=== PATIENT | female | born 1975 | race Caucasian/White ===

== ENCOUNTER → 2019-11-24 | Day surgery (SDC) | payer OTHER ==
[~2019-11-24] MED LIST: AMITRIPTYLINE H25 MG PO; CEFUROXIME250 MG PO; DEXAMETHASONE SOD PHOS INJ 4 MG/ML VIAL ONE; FENTANYL CITRATE/PF 100MCG/2 ML INJ ONE; HYDROMORPHONE 1MG/1ML INJ ONE; LEXAPRO10 MG PO; LIDOCAINE 1% W/EPINEPHRINE 20 ML VIAL ONE; LIDOCAINE HCL 2% LOCAL INJ 5 ML SDV VIAL INJ ONE; LINZESS145 MCG PO; MIDAZOLAM HCL 2 MG/2 ML VIAL ONE; OMEPRAZOLE40 MG PO; ONDANSETRON HCL INJ 2MG/ML 2ML 2 MG/ML VIAL ONE; ONE DAILY FOR1 EACH PO; PROPOFOL IV EMULSION 10 MG/ML 20 ML VIAL ONE; SEVOFLURANE INHAL SOLN 250 ML PEN BTL ONE; VITAMIN B122500 MCG PO
--- NOTE | 2019-11-24 03:16 | Pre Op History & Physical ---
ANTICIPATED DATE OF SURGERY: 11/24/2019. CHIEF COMPLAINT: Right thyromegaly. 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 The patient's thyroid function tests have been normal recently. Ultrasound of thyroid was done in September of this year showed the patient has enlarged thyroid, worse on the right side with subcentimeter nodule on both sides with calcified nodule on the left. The patient over the past months has progressively increased dysphagia with no odynophagia. The patient denies any choking. She has no voice problem. She mentioned that she has more trouble with solid than liquid. The initial game plan for the patient's thyroid was to repeat ultrasound in the new year. However, the patient because of progressively increased symptoms, CT scan of the neck was performed showed the patient has enlarged slight right thyroid gland with diffuse heterogeneity with minimal compression of the trachea on the right side. REVIEW OF SYSTEMS: Showed no recent cardiovascular, respiratory, or GI problem. PAST MEDICAL HISTORY: The patient has no significant medical problem. PAST SURGICAL HISTORY: The patient has previous tonsillectomy, adenoidectomy, bilateral myringotomy and tubes, laparoscopy, hysterectomy, wisdom teeth extraction, left elbow surgery, bariatric sleeve surgery, and cholecystectomy. ALLERGIES: SHE IS ALLERGIC TO STADOL AND PLASTIC TAPE. MEDICATIONS: She is on: 1. Vitamins. 2. Lexapro. 3. Amitriptyline. 4. Linzess. 5. Omeprazole. SOCIAL HISTORY: Nonsmoker and social drinker. FAMILY HISTORY: Noncontributory. PHYSICAL EXAMINATION: VITAL SIGNS: The patient's vital signs were within normal limits. HEENT: Ear exam showed normal tympanic membrane bilaterally. Nasal exam showed hypertrophy of inferior turbinates. Oropharynx and oral cavity showed 2+ tonsils bilaterally with Mallampati level 2. Nasal endoscopy showed mobile vocal folds bilaterally with no lesion in the hypopharynx. NECK: Showed fullness in the neck, worse on the right side. No other lymph node was palpable. CHEST: Showed good air entry bilaterally. CARDIOVASCULAR: Showed S1, S2. No murmur noted. ASSESSMENT AND PLAN: Mrs. Cox has right thyroid enlargement with slight compression of the trachea. The patient has quite severe symptoms. I suggested treatment is right thyroidectomy, possible total thyroidectomy, and other necessary procedure. Complication of procedure includes but not limited to bleeding, infection, hypothyroidism, hyperthyroidism, hypocalcemia, hypercalcemia, voice change, recurrent laryngeal nerve injury, trouble swallowing, dysphagia, wound breakdown, poor cosmetic result, perforation of the esophagus, pneumomediastinum, mediastinitis, persistent recurrence of the problem. The alternatives will be continue observation. Continue antibiotic therapy, topical nasal steroid therapy, systemic steroid therapy, thyroid suppression therapy, and I have discussed with the patient regarding the possibility of her pressure sensation could be secondary to the bariatric surgery with gastroesophageal reflux symptoms and seen a GI physician. The patient has elected to undergo the surgical procedure. MD BLANCA Sal/FOUZIA /[id number] cc: June Pandya [employer]
[2019-11-24 12:45] VITALS: BP 126/83
--- NOTE | 2019-11-24 19:21 | Operative Report ---
DATE OF PROCEDURE: 11/24/2019 SURGEON: Deep Cardona MD CHIEF COMPLAINT: Right thyromegaly. POSTOPERATIVE DIAGNOSIS: Right thyromegaly with multinodular goiter. OPERATIVE PROCEDURE: Right thyroidectomy with appropriate closure. ANESTHESIA: Anesthesiology group. HISTORY OF PRESENT ILLNESS: This 44-year-old female has history of multinodular goiter. The patient has subcentric nodules on both sides. The patient was noted to have a slightly larger thyroid on the right side compared to the left. The initial game plan was to follow the nodules with repeated ultrasound because the nodules were too small for biopsy. However, over the past few months, the patient has progressively more compression coming from the thyroid, worse on the right side. A CT scan of the neck that was done showed the patient has thyromegaly with the right thyroid, potentially pressing on the trachea. This has been quite symptomatic to the patient. The patient has no radiation to the head and neck area. She has no obvious dysphagia, odynophagia, weight changes. The patient has no hoarseness. It was decided that right thyroidectomy, possible total thyroidectomy, and other necessary procedure will be beneficial for her. The patient was taken to the operating room, put under general anesthesia, endotracheally intubated. An incision was marked out about two fingerbreadths from the sternal notch. Size of the incision was about 3.5 cm. The area was injected with 1% Xylocaine with 1:100,000 epinephrine for hemostasis. Dissection was carried down the subplatysmal plane. The superior and inferior flap were elevated. The strap muscle was identified and this was . The superior pole of the thyroid was dissected from the surrounding soft tissue. It was noted that the thyroid gland was wrapped 180 degrees around the trachea. With some difficulty, this was dissected off using the Harmonic scalpel. The soft thyroid gland was rotated medially and inferiorly. The thyroid gland was delivered. The thyroid isthmus was transected using the Bovie. The inferior pole of the thyroid was dissected from the surrounding soft tissue. The recurrent laryngeal nerve was identified and this was not disturbed. The inferior parathyroid gland was identified and not disturbed. The thyroid gland was dissected from the Wen ligament with some difficulty because of the way to the thyroid gland was positioned around the trachea, this was dissected off. Because of the weather today, the pathologist cannot make it in for frozen section at the last minute, so frozen section was not available. Closure of the area was undertaken. The tracheoesophageal groove was examined. Any bleeding area was controlled using the bipolar cautery. The strap muscle was advanced and closed on itself using one suture of mattress 3-0 Vicryl suture. The platysmal flap was advanced in the midline and closed on itself using 3-0 Vicryl suture in the interrupted fashion. The skin incision was closed using 4-0 Monocryl suture in the interrupted fashion. A pressure dressing was applied. The patient tolerated the above procedure well. Before the closure of the incision, the left thyroid gland was palpated. No obvious abnormality was noted. No enlarged nodules or potential obvious calcification of the thyroid gland was noted. The platysmal flap was advanced in midline and closed using one suture of mattress 3-0 Vicryl suture. The closure was undertaken. The strap muscle was advanced and closed with one suture of mattress 3-0 Vicryl suture. The platysmal flap was advanced in midline and closed on itself using 3-0 Vicryl suture in the interrupted fashion. The skin incision was closed using 4-0 Monocryl suture in interrupted fashion. Pressure dressing was applied. The patient tolerated the above procedure well with estimated blood loss about 10-15 mL. She was given 12 mg of Decadron intraoperatively. The patient was able to be transferred to recovery room in stable condition. MD BLANCA Sal/FOUZIA /[id number]
== END | disposition home or self-care (01) ==
LOC: OR 06:36
PROVIDERS: ATTEND Otolaryngology Otolaryngology/Facial Plastic Surgery
DX: E06.3 Autoimmune thyroiditis (principal); E01.0 Iodine-deficiency related diffuse (endemic) goiter; Z88.6 Allergy status to analgesic agent; Z91.048 Other nonmedicinal substance allergy status
CPT/HCPCS: 60210; 88307; J1100; J1170; J2001; J2250; J2405; J2704; J3010

== ENCOUNTER → 2019-12-29 | Day surgery (SDC) | payer OTHER ==
--- NOTE | 2019-12-28 17:06 | Pre Op History & Physical ---
DATE OF SURGERY: December 29, 2019. CHIEF COMPLAINT: Nasal obstruction, chronic sinusitis. HISTORY OF PRESENT ILLNESS: This 44-year-old female has history of nasal obstruction and facial pain for a few months. The patient has no epistaxis. She has normal sense of smell. She does have postnasal drip. Her condition has been followed for the past year and has been treated with more than 12 weeks of antibiotics, topical nasal steroid and decongestant with no improvement. On examination, on CT scan of paranasal sinuses done before surgery showed the patient has ethmoid involvement and deviated nasal septum. REVIEW OF SYSTEMS: System review showed no recent cardiovascular, respiratory, or GI problem. PAST MEDICAL HISTORY: The patient has no significant medical problem. PAST SURGICAL HISTORY: The patient has previous hysterectomy x3, tonsillectomy, adenoidectomy, bilateral myringotomy and tubes, laparoscopic heel sander surgery, wisdom teeth extraction, left elbow surgery, bariatric gastric sleeve surgery, and cholecystectomy. She recently had a right thyroidectomy for thyroid compression on the trachea. SOCIAL HISTORY: She is nonsmoker and a social drinker. ALLERGIES: SHE IS ALLERGIC TO PLASTIC TAPE AND STADOL. MEDICATIONS: She is on vitamins, Lexapro, amitriptyline, Linzess, omeprazole. FAMILY HISTORY: Noncontributory. PHYSICAL EXAMINATION: VITAL SIGNS: The patient's vital signs were within normal limits. HEENT: Ear exam showed normal tympanic membrane bilaterally. Nasal exam showed deviated nasal septum on left side about 30%. Oropharynx and oral cavity showed no tonsils with Mallampati level 2. NECK: Showed no lymph node or thyroid palpable. CHEST: Showed good air entry bilaterally. CARDIOVASCULAR: Showed S1, S2. No murmur noted. ASSESSMENT AND PLAN: Ms. Cox has chronic sinusitis, nasal obstruction which has been resistant to conservative therapy. The suggested treatment is endoscopic sinus surgery, septoplasty, resection of inferior turbinate and other necessary procedure. Complication of procedure includes but not limited to bleeding, infection, CSF leak, blindness, double vision, meningitis, septal perforation, septal hematoma, persistent nasal obstruction, persistent nasal crusting, nasal deformity, persistent recurrence of the sinus problem. The alternative will be continue observation, continue antibiotic therapy, topical nasal steroid therapy, systemic steroid therapy, decongestant. The patient has elected to undergo the surgical procedure. MD BLANCA Sal/FOUZIA /[id number]
[~2019-12-29] MED LIST changes: +EPINEPHRINE HCL 1:1000 1ML 1 MG/ML AMP ONE; +GLYCOPYRROLATE INJ 0.2 MG/ML VIAL ONE; -HYDROMORPHONE 1MG/1ML INJ ONE; +KETOROLAC TROMETHAMINE 30 MG/ML VIAL ONE; +LIDOCAINE HCL 2% JELLY 5 ML TUBE ONE; +NEOSTIGMINE 1 MG/ML 10ML VIAL ONE; +ROCURONIUM BROMIDE 10 MG/ML 5ML VIAL IV ONE; +thyroid med PO
[2019-12-29 11:50] VITALS: BP 140/93
--- NOTE | 2019-12-29 14:17 | Operative Report ---
DATE OF PROCEDURE: 12/29/2019 SURGEON: Deep Cardona MD CHIEF COMPLAINT: Chronic sinusitis, nasal obstruction. POSTOPERATIVE DIAGNOSIS: Chronic sinusitis, nasal obstruction. OPERATIVE PROCEDURE: Right anterior and posterior ethmoidectomy, septoplasty. ANESTHESIA: Anesthesiology group. INDICATIONS: This 44-year-old female has history of nasal obstruction, postnasal drip discharge from her nose. The patient condition has been treated with more than 12 weeks of antibiotics topical nasal steroid decongestant with no improvement. The patient's condition has been followed for more than six months with no improvement of the condition. On examination, she was noted to have a deviated nasal septum to the left side about 20%-30%. A CT scan of paranasal sinuses done before surgery showed the patient has ethmoid sinus involvement on the right side with confirmed deviated nasal septum. It was decided that endoscopic sinus surgery, septoplasty, and other necessary procedure will be beneficial for her. The patient was taken to the operating room, put under general anesthesia, endotracheally intubated. The nose was injected with 1% Xylocaine with 1:100,000 epinephrine for hemostasis. Epinephrine-soaked pledget was inserted in nose and subsequently removed. The left paranasal sinuses were approached first. Middle turbinate was medialized. The right paranasal sinuses were approached. The middle turbinate was medialized. The bulla ethmoidalis was entered. Inflamed tissue was noted both anterior and posterior ethmoid sinus area. Care was taken during dissection to ascertain although it was not entered. The septoplasty was performed. A hemitransfixion incision was done on the left side. Mucoperichondrial flap was elevated on the left. Bony cartilaginous junction was encountered and this was . Perpendicular plate of the ethmoid was transected this was removed along with the vomer. The septal spur cartilaginous portion removed using a [place] elevator and bony spur using a 4 mm straight chisel. Quadrangular cartilage after being freed from posterior inferior constraint was able to swing back into the midline. The hemitransfixion incision was closed using 4-0 chromic suture in interrupted fashion. Septal whipstitch was done using 4-0 plain gut suture to reapproximate the mucoperichondrial flap and prevent septal hematoma formation. NasoPore was inserted in the right sinus cavities to prevent synechiae formation and for hemostasis. The nasal cavity and nasopharynx were re-examined. No other abnormality was noted. The patient tolerated the above procedure well with estimated blood loss of about 20 mL. She was given 20 mg of Decadron intraoperatively. The patient was able to be transferred to recovery room in stable condition. MD BLANCA Sal/FOUZIA /[id number]
== END | disposition home or self-care (01) ==
LOC: OR 10:38
PROVIDERS: ATTEND Otolaryngology Otolaryngology/Facial Plastic Surgery
DX: J32.2 Chronic ethmoidal sinusitis (principal); J34.2 Deviated nasal septum; Z88.6 Allergy status to analgesic agent; Z91.048 Other nonmedicinal substance allergy status; K21.9 Gastro-esophageal reflux disease without esophagitis; F41.9 Anxiety disorder, unspecified
CPT/HCPCS: 30520; 31255; 81025; 88300; 88305; J0171; J1100; J1885; J2001 ×2; J2250; J2405; J2704; J2710; J3010